=== PATIENT | male | born 1980 | race Caucasian/White ===

== ENCOUNTER 2018-01-24 12:17 | Inpatient (IN) | payer MEDICAID ==
[~2018-01-24] VITALS: Ht 170.2 cm; Wt 59.6 kg
[~2018-01-24 12:17] MED LIST: HIV MEDICATIONS PO; antihypertensive PO
[2018-01-24 13:08] LABS: GLUCOSE,POINT OF CARE 83 MG/DL (70-110)
[2018-01-24 13:34] LABS: BASOPHILS % (AUTO) 0.5 % (0.0-2.0); EOSINOPHILS % (AUTO) 2.3 % (1.0-6.0); HEMATOCRIT 36.4 % (41-53); LYMPHOCYTES # (AUTO) 0.9 K/uL (1.0-4.8); LYMPHOCYTES % (AUTO) 13.7 % (22.0-44.0); MEAN CORPUSCULAR HEMOGLOBIN 24.8 pg (26.0-34.0); MEAN CORPUSCULAR HGB CONC 33.1 G/dL (31.0-37.0); MEAN CORPUSCULAR VOLUME 75 fL (80-100); MONOCYTES # (AUTO) 0.6 K/uL (0.1-1.0); MONOCYTES % (AUTO) 8.1 % (2.0-9.0); NEUTROPHILS # (AUTO) 5.2 K/uL (1.8-7.7); NEUTROPHILS % (AUTO) 75.4 % (40.0-70.0); PLATELET COUNT (AUTO) 708 K/uL (150-450); RED BLOOD CELL COUNT(AUTO) 4.86 MIL/uL (4.50-5.90); RED CELL DISTRIBUTION WIDTH 19.3 % (11.5-14.5)
[2018-01-24 13:44] LABS: PROTHROMBIN TIME 10.1 SEC (9.4-11.6)
[2018-01-24 13:49] LABS: ANION GAP 9 mmol/L (8-16); CALCIUM, TOTAL 8.9 mg/dL (8.8-10.5); CARBON DIOXIDE 30 mmol/L (22-29); CHLORIDE 97 mmol/L (98-107); CREATININE 0.72 mg/dL (0.60-1.30); GLOMERULAR FILTR. RATE CALC > 60 mL/min (>60); GLUCOSE,RANDOM 82 mg/dL (70-110); POTASSIUM 3.3 mmol/L (3.5-5.1); SODIUM SERUM 136 mmol/L (136-145); UREA NITROGEN, BLOOD 7 mg/dL (7-18)
[2018-01-24 13:56] LABS: B-TYPE NATRIURETIC PEPTIDE 21 pg/mL (0-100)
[2018-01-24 13:57] LABS: LACTIC ACID 1.2 mmol/L (0.4-2.0)
[2018-01-24 14:14] LABS: ALANINE AMINOTRANSFERASE 25 U/L (12-78); ALBUMIN 3.4 g/dL (3.4-5.0); ALKALINE PHOSPHATASE 200 U/L (46-116); ASPARTATE AMINOTRANSFERASE 28 U/L (15-37); BILIRUBIN,TOTAL 0.2 mg/dL (0.1-1.0); CREATINE KINASE MB < 0.5 ng/mL (0-5); CREATINE KINASE, TOTAL 119 U/L (39-308); TOTAL PROTEIN, SERUM 8.7 g/dL (6.4-8.2)
[2018-01-24] MEDS ORDERED: POTASSIUM CHLORIDE 20 MEQ ER TABLET PO ONE (14:30)
[2018-01-24] MEDS ORDERED: 0.9% SODIUM CHLORIDE 10 ML SYRINGE IVP PRN (15:15)
[2018-01-24] MEDS ORDERED: ACETAMINOPHEN 325 MG TABLET PO PRN (15:15)
[2018-01-24] MEDS ORDERED: MAGNESIUM HYDROXIDE SUSPENSION 30 ML UDCUP PO PRN (16:00)
[2018-01-24] MEDS ORDERED: ONDANSETRON HCL 4 MG/2 ML VIAL IVP PRN (16:00)
[2018-01-24] MEDS ORDERED: CLOTRIMAZOLE 1% 15 GM CREAM TP ONE (16:00)
[2018-01-24] MEDS ORDERED: BISACODYL 10 MG RECTAL RECTAL SUPPOSITORY PR PRN (16:00)
[2018-01-24] MEDS: HEPARIN SODIUM,PORCINE 5,000 UNITS/ML VIAL SQ SCH ×2 (16:10→23:26)
[2018-01-24 16:58] LABS: APPEARANCE,URINE CLEAR (CLEAR); BILIRUBIN,URINE NEGATIVE (NEGATIVE); GLUCOSE, URINE (UA) NEGATIVE (NEGATIVE); KETONES,URINE NEGATIVE (NEGATIVE); LEUKOCYTE ESTERASE ,URINE NEGATIVE (NEGATIVE); NITRATE,URINE NEGATIVE (NEGATIVE); OCCULT BLOOD,URINE NEGATIVE (NEGATIVE); PROTEIN,URINE NEGATIVE (NEGATIVE); UROBILINOGEN,URINE 0.2 mg/dL (<=1.0)
[2018-01-24 17:03] VITALS: BP 134/80
[2018-01-24] MEDS ORDERED: AZIT600T5 PO (18:18)
[2018-01-24] MEDS ORDERED: ACYC200L PO (18:18)
[2018-01-24] MEDS ORDERED: DOLU50TA PO (18:18)
[2018-01-24] MEDS ORDERED: MIRT15TA PO (18:18)
[2018-01-24] MEDS ORDERED: DARU1TAB PO (18:18)
[2018-01-24] MEDS ORDERED: VALA100026 PO (18:18)
[2018-01-24] MEDS ORDERED: AMOX-429 PO (18:18)
[2018-01-24] MEDS ORDERED: EMTR1TAB13 PO (18:18)
[2018-01-24] MEDS ORDERED: D-ME118S13 PO (18:18)
[2018-01-24] MEDS ORDERED: DAPS100 PO (18:18)
[2018-01-24] MEDS ORDERED: FLUC200T PO (18:18)
[2018-01-24] MEDS ORDERED: VALA500T PO (18:18)
[2018-01-24] MEDS: MORPHINE SULFATE 4 MG/ML SYRINGE IVP PRN (18:37)
[2018-01-24 20:06] VITALS: BP 134/85
[2018-01-24] MEDS: DOCUSATE SODIUM 100 MG CAPSULE PO SCH (20:32)
[2018-01-24] MEDS: ACETAMINOPHEN 325 MG TABLET PO PRN (20:32)
[2018-01-24 23:50] VITALS: BP 122/84
[2018-01-25] MEDS: HYDROCODONE/ACETAMINOPHEN 5-325 MG TABLET PO PRN ×3 (02:35→21:46)
[2018-01-25] MEDS ORDERED: SULF1TAB3 PO (06:11)
[2018-01-25 06:50] LABS: BASOPHILS % (AUTO) 0.4 % (0.0-2.0); EOSINOPHILS % (AUTO) 1.9 % (1.0-6.0); HEMATOCRIT 31.1 % (41-53); HEMOGLOBIN 10.5 g/dL (13.5-17.5); LYMPHOCYTES # (AUTO) 0.9 K/uL (1.0-4.8); LYMPHOCYTES % (AUTO) 12.9 % (22.0-44.0); MEAN CORPUSCULAR HGB CONC 33.8 G/dL (31.0-37.0); MEAN CORPUSCULAR VOLUME 74 fL (80-100); MONOCYTES # (AUTO) 0.9 K/uL (0.1-1.0); NEUTROPHILS # (AUTO) 5.1 K/uL (1.8-7.7); NEUTROPHILS % (AUTO) 71.8 % (40.0-70.0); PLATELET COUNT (AUTO) 607 K/uL (150-450); RED CELL DISTRIBUTION WIDTH 18.4 % (11.5-14.5)
[2018-01-25 07:32] LABS: ALANINE AMINOTRANSFERASE 20 U/L (12-78); ALBUMIN 2.9 g/dL (3.4-5.0); ALKALINE PHOSPHATASE 171 U/L (46-116); ANION GAP 11 mmol/L (8-16); ASPARTATE AMINOTRANSFERASE 21 U/L (15-37); BILIRUBIN,TOTAL 0.2 mg/dL (0.1-1.0); CALCIUM, TOTAL 8.5 mg/dL (8.8-10.5); CARBON DIOXIDE 26 mmol/L (22-29); CHLORIDE 100 mmol/L (98-107); CREATININE 0.57 mg/dL (0.60-1.30); GLOMERULAR FILTR. RATE CALC > 60 mL/min (>60); GLUCOSE,RANDOM 82 mg/dL (70-110); POTASSIUM 3.6 mmol/L (3.5-5.1); SODIUM SERUM 137 mmol/L (136-145); TOTAL PROTEIN, SERUM 7.4 g/dL (6.4-8.2); UREA NITROGEN, BLOOD 10 mg/dL (7-18)
[2018-01-25 08:05] VITALS: BP 116/69
[2018-01-25] MEDS: PANTOPRAZOLE SODIUM 40 MG DR TABLET PO SCH (09:07)
[2018-01-25] MEDS: DOCUSATE SODIUM 100 MG CAPSULE PO SCH ×2 (09:07→20:06)
[2018-01-25] MEDS: HEPARIN SODIUM,PORCINE 5,000 UNITS/ML VIAL SQ SCH ×3 (09:07→23:27)
[2018-01-25] MEDS ORDERED: DOLUTEGRAVIR SODIUM 50 MG TABLET PO ONE (11:45)
[2018-01-25] MEDS ORDERED: FLUCONAZOLE 200 MG TABLET PO ONE (11:45)
[2018-01-25] MEDS ORDERED: SULFAMETHOX/TRIMETH DS 800-160 MG/TABLET PO ONE (11:45)
[2018-01-25 12:02] VITALS: BP 116/67
[2018-01-25] MEDS: MORPHINE SULFATE 4 MG/ML SYRINGE IVP PRN ×2 (12:07→19:41)
[2018-01-25] MEDS: ACETAMINOPHEN 325 MG TABLET PO PRN (14:09)
[2018-01-25] MEDS: ACYCLOVIR 200 MG/5 ML SUSPENSION ORAL.SYG PO SCH ×2 (14:09→23:26)
[2018-01-25] MEDS: ValACYclovir HCL 500 MG TABLET PO SCH ×2 (16:00→17:43)
[2018-01-25 20:06] VITALS: BP 161/92
[2018-01-25] MEDS: ZOLPIDEM TARTRATE 5 MG TABLET PO PRN (21:46)
[2018-01-25] MEDS: DOXYCYCLINE HYCLATE 100 MG CAPSULE PO SCH (23:27)
[2018-01-25] MEDS: CefTRIAXone SODIUM 1 GM in DEXTROSE 5%-WATER 10 ML IV SCH (23:29)
[2018-01-26] MEDS: MORPHINE SULFATE 4 MG/ML SYRINGE IVP PRN ×4 (01:43→19:16)
[2018-01-26 05:15] VITALS: BP 120/79
[2018-01-26] MEDS: ACETAMINOPHEN 325 MG TABLET PO PRN (05:20)
[2018-01-26] MEDS: FLUCONAZOLE 200 MG TABLET PO SCH (08:01)
[2018-01-26] MEDS: ACYCLOVIR 200 MG/5 ML SUSPENSION ORAL.SYG PO SCH ×3 (08:01→23:20)
[2018-01-26] MEDS: SULFAMETHOX/TRIMETH DS 800-160 MG/TABLET PO SCH (08:01)
[2018-01-26] MEDS: DOLUTEGRAVIR SODIUM 50 MG TABLET PO SCH (08:01)
[2018-01-26] MEDS: HEPARIN SODIUM,PORCINE 5,000 UNITS/ML VIAL SQ SCH ×3 (08:01→23:20)
[2018-01-26] MEDS: DOXYCYCLINE HYCLATE 100 MG CAPSULE PO SCH ×2 (08:01→20:29)
[2018-01-26] MEDS: DOCUSATE SODIUM 100 MG CAPSULE PO SCH ×2 (08:02→20:29)
[2018-01-26] MEDS: PANTOPRAZOLE SODIUM 40 MG DR TABLET PO SCH (08:02)
[2018-01-26 08:10] VITALS: BP 114/71
[2018-01-26 16:20] VITALS: BP 123/73
[2018-01-26 23:00] VITALS: BP 126/83
[2018-01-26] MEDS: CefTRIAXone SODIUM 1 GM in DEXTROSE 5%-WATER 10 ML IV SCH (23:20)
[2018-01-27] MEDS: MORPHINE SULFATE 4 MG/ML SYRINGE IVP PRN ×4 (00:03→22:00)
[2018-01-27 08:03] VITALS: BP 132/75
[2018-01-27] MEDS: HEPARIN SODIUM,PORCINE 5,000 UNITS/ML VIAL SQ SCH ×2 (09:16→17:23)
[2018-01-27] MEDS: DOXYCYCLINE HYCLATE 100 MG CAPSULE PO SCH ×2 (09:16→21:00)
[2018-01-27] MEDS: SULFAMETHOX/TRIMETH DS 800-160 MG/TABLET PO SCH (09:16)
[2018-01-27] MEDS: DOCUSATE SODIUM 100 MG CAPSULE PO SCH ×2 (09:16→21:00)
[2018-01-27] MEDS: DOLUTEGRAVIR SODIUM 50 MG TABLET PO SCH (09:16)
[2018-01-27] MEDS: PANTOPRAZOLE SODIUM 40 MG DR TABLET PO SCH (09:16)
[2018-01-27] MEDS: FLUCONAZOLE 200 MG TABLET PO SCH (09:16)
[2018-01-27] MEDS: ACYCLOVIR 200 MG/5 ML SUSPENSION ORAL.SYG PO SCH ×2 (09:17→17:23)
[2018-01-27] MEDS: HYDROCODONE/ACETAMINOPHEN 5-325 MG TABLET PO PRN (09:25)
[2018-01-27 15:41] VITALS: BP 129/71
[2018-01-27] MEDS: CefTRIAXone SODIUM 1 GM in DEXTROSE 5%-WATER 10 ML IV SCH (21:01)
[2018-01-28] MEDS: ACYCLOVIR 200 MG/5 ML SUSPENSION ORAL.SYG PO SCH ×3 (00:06→16:00)
[2018-01-28] MEDS: ZOLPIDEM TARTRATE 5 MG TABLET PO PRN (00:07)
[2018-01-28] MEDS: HEPARIN SODIUM,PORCINE 5,000 UNITS/ML VIAL SQ SCH ×3 (00:07→16:00)
[2018-01-28 00:13] VITALS: BP 122/76
[2018-01-28 06:29] VITALS: BP 117/73
[2018-01-28 09:27] LABS: ORGANISM ID Not indicated.; S PNEUMO SOURCE Urine; STREP PNEUMONIAE AG URINE Negative (Negative); STREP.PNEUMO BODY FLUID CULT. Not Indicated
[2018-01-28] MEDS: SULFAMETHOX/TRIMETH DS 800-160 MG/TABLET PO SCH (09:34)
[2018-01-28] MEDS: DOLUTEGRAVIR SODIUM 50 MG TABLET PO SCH (09:35)
[2018-01-28] MEDS: PANTOPRAZOLE SODIUM 40 MG DR TABLET PO SCH (09:35)
[2018-01-28] MEDS: DOCUSATE SODIUM 100 MG CAPSULE PO SCH (09:35)
[2018-01-28] MEDS: FLUCONAZOLE 200 MG TABLET PO SCH (09:35)
[2018-01-28] MEDS: DOXYCYCLINE HYCLATE 100 MG CAPSULE PO SCH (09:35)
[2018-01-28 11:15] VITALS: BP 115/73
[2018-01-28 15:10] VITALS: BP 128/75
[2018-02-01] MEDS ORDERED: AZITHROMYCIN 600 MG TABLET PO SCH (09:00)
== END 2018-01-28 16:10 | disposition left against medical advice (07) | DRG 892 ==
LOC: EMS 12:18 → 6N 15:49
PROVIDERS: ADMIT Internal Medicine; ATTEND Internal Medicine
DX: B20 Human immunodeficiency virus [HIV] disease (principal); A15.9 Respiratory tuberculosis unspecified; K92.0 Hematemesis; J18.9 Pneumonia, unspecified organism; I10 Essential (primary) hypertension; D64.9 Anemia, unspecified; E87.6 Hypokalemia; R09.02 Hypoxemia; R63.4 Abnormal weight loss; R19.7 Diarrhea, unspecified; Z53.21 Procedure and treatment not carried out due to patient leaving prior to being seen by health care provider; Z91.19 Patient's noncompliance with other medical treatment and regimen; Z86.11 Personal history of tuberculosis; Z68.20 Body mass index [BMI] 20.0-20.9, adult
CPT/HCPCS: 71250; 83605; 84145; 86361; 86403; 86406; 86480; 86738; 87015; 87040; 87070; 87205; 87449; 87899; 88108; 88312; 93005; 99285; J0696; J1644; J2270; J7060

== ENCOUNTER 2018-06-25 19:11 | Inpatient (IN) | payer MEDICAID ==
[~2018-06-25] VITALS: Ht 170.2 cm; Wt 57.3 kg
[~2018-06-25 19:11] MED LIST changes: +ACYC200L PO; +AMOX-429 PO; +AZIT600T5 PO; +D-ME118S13 PO; +DAPS100 PO; +DARU1TAB PO; +DOLU50TA PO; +EMTR1TAB13 PO; +FLUC200T PO; +MIRT15TA PO; +SULF1TAB3 PO; +VALA100026 PO; +VALA500T PO
[2018-06-25] MEDS ORDERED: 0.9% SODIUM CHLORIDE 10 ML SYRINGE IVP PRN (19:45)
[2018-06-25] MEDS ORDERED: ACYC200C PO (19:48)
[2018-06-25 20:25] LABS: HEMATOCRIT 33.1 % (41-53); HEMOGLOBIN 10.9 g/dL (13.5-17.5); MEAN CORPUSCULAR HEMOGLOBIN 24.3 pg (26.0-34.0); MEAN CORPUSCULAR VOLUME 74 fL (80-100); PLATELET COUNT (AUTO) 706 K/uL (150-450); RED CELL DISTRIBUTION WIDTH 17.9 % (11.5-14.5)
[2018-06-25 20:34] LABS: PROTHROMBIN TIME 10.5 SEC (9.4-11.6)
[2018-06-25 20:41] LABS: ALANINE AMINOTRANSFERASE 21 U/L (12-78); ALBUMIN 2.7 g/dL (3.4-5.0); ALKALINE PHOSPHATASE 168 U/L (46-116); ANION GAP 10 mmol/L (8-16); ASPARTATE AMINOTRANSFERASE 20 U/L (15-37); BILIRUBIN,TOTAL 0.3 mg/dL (0.1-1.0); CALCIUM, TOTAL 8.7 mg/dL (8.8-10.5); CARBON DIOXIDE 28 mmol/L (22-29); CHLORIDE 99 mmol/L (98-107); CREATINE KINASE, TOTAL ONLY 37 U/L (39-308); CREATININE 0.65 mg/dL (0.60-1.30); GLOMERULAR FILTR. RATE CALC > 60 mL/min (>60); GLUCOSE,RANDOM 107 mg/dL (70-110); SODIUM SERUM 137 mmol/L (136-145); TOTAL PROTEIN, SERUM 7.6 g/dL (6.4-8.2); UREA NITROGEN, BLOOD 10 mg/dL (7-18)
[2018-06-25] MEDS ORDERED: ACETAMINOPHEN 325 MG TABLET PO PRN (20:45)
[2018-06-25] MEDS ORDERED: MAGNESIUM HYDROXIDE SUSPENSION 30 ML UDCUP PO PRN (20:45)
[2018-06-25] MEDS ORDERED: ALBUTEROL SULFATE 2.5 MG/0.5 ML NEB SOLUTION NEB PRN (20:45)
[2018-06-25] MEDS ORDERED: LEVOFLOXACIN 500 MG/D5% WATER 100 ML IV ONE (20:45)
[2018-06-25 20:47] LABS: BAND NEUTROPHILS % (MANUAL) 23 % (0-5); EOSINOPHILS % (MANUAL) 1 % (1-6); LYMPHOCYTES % (MANUAL) 13 % (22-44); METAMYELOCYTES % 1 % (0-0); MONOCYTES % (MANUAL) 11 % (2-9); SEGMENTED NEUTROPHILS % 51 % (40-70)
[2018-06-25 20:48] LABS: PLATELET MORPHOLOGY COMMENT LARGE PLTS PRESENT
[2018-06-25 20:51] LABS: B-TYPE NATRIURETIC PEPTIDE 23 pg/mL (0-100)
[2018-06-25 21:00] LABS: LACTIC ACID 1.3 mmol/L (0.4-2.0)
[2018-06-25] MEDS ORDERED: POTASSIUM CHL 10 MEQ/WATER 50 ML IV PRN (21:00)
[2018-06-25] MEDS: DOCUSATE SODIUM 100 MG CAPSULE PO SCH (21:00)
[2018-06-25] MEDS ORDERED: SODIUM CHLORIDE 0.9% 1,000 ML IV ONE (21:00)
[2018-06-25] MEDS ORDERED: POTASSIUM CHLORIDE 20 MEQ ER TABLET PO PRN (21:00)
[2018-06-25] MEDS ORDERED: POTASSIUM CHLORIDE 20 MEQ ER TABLET PO ONE (21:30)
[2018-06-25] MEDS ORDERED: NYSTATIN 500,000 UNITS/5 ML SUSPENSION UDCUP PO ONE (21:45)
[2018-06-25] MEDS: OxyCODONE HCL/ACETAMINOPHEN 5-325 MG TABLET PO PRN (22:35)
[2018-06-25] MEDS ORDERED: IOVERSOL 350 MG/ML 100 ML VIAL ONE (22:37)
[2018-06-25] MEDS ORDERED: SODIUM CHLORIDE 0.9% 100 ML ONE (22:37)
[2018-06-25] MEDS: PROMETH/PHENYLEPHRINE/CODEINE 5 ML ORAL.SYG PO PRN (22:44)
[2018-06-25] MEDS ORDERED: LORazepam 2 MG/ML VIAL IVP ONE (23:00)
[2018-06-26 00:31] VITALS: BP 119/60
[2018-06-26 04:30] VITALS: BP 122/62
[2018-06-26] MEDS: PROMETH/PHENYLEPHRINE/CODEINE 5 ML ORAL.SYG PO PRN (04:54)
[2018-06-26] MEDS: OxyCODONE HCL/ACETAMINOPHEN 5-325 MG TABLET PO PRN (06:11)
[2018-06-26 07:34] VITALS: BP 127/75
[2018-06-26] MEDS: PANTOPRAZOLE SODIUM 40 MG DR TABLET PO SCH (08:28)
[2018-06-26] MEDS: DOCUSATE SODIUM 100 MG CAPSULE PO SCH ×2 (08:28→21:00)
[2018-06-26] MEDS ORDERED: [UNRECOGNIZED DRUG - OTHER] PO SCH (09:45)
[2018-06-26] MEDS: PROMETHAZINE HCL/D-METHORPHAN HB 5 ML ORAL.SYG PO PRN ×2 (10:39→18:09)
[2018-06-26] MEDS: AMOX TR/POT CLAV 875 MG/125 MG TABLET PO SCH ×2 (10:51→21:00)
[2018-06-26] MEDS: SULFAMETHOX/TRIMETH DS 800-160 MG/TABLET PO SCH (10:51)
[2018-06-26 11:24] VITALS: BP 112/71
[2018-06-26] MEDS ORDERED: SODIUM CHLORIDE 3% 15 ML NEB SOLUTION NEB ONE (11:53)
[2018-06-26] MEDS: MORPHINE SULFATE 2 MG/ML SYRINGE IVP PRN ×2 (13:41→18:10)
[2018-06-26] MEDS: ACYCLOVIR 200 MG CAPSULE PO SCH (16:00)
[2018-06-26] MEDS: ACETAMINOPHEN 650 MG/20.3 ML SOLUTION UDCUP PO PRN (19:12)
[2018-06-26 19:27] VITALS: BP 118/74
[2018-06-26] MEDS: MIRTAZAPINE 15 MG TABLET PO SCH ×2 (21:00→22:41)
[2018-06-26] MEDS ORDERED: SODIUM CHLORIDE 0.9% 250 ML IV ONE (21:43)
[2018-06-26 23:27] VITALS: BP 121/68
[2018-06-27] MEDS: PROMETHAZINE HCL/D-METHORPHAN HB 5 ML ORAL.SYG PO PRN ×2 (04:10→17:47)
[2018-06-27] MEDS: MORPHINE SULFATE 2 MG/ML SYRINGE IVP PRN ×2 (04:11→17:17)
[2018-06-27 04:17] VITALS: BP 126/88
[2018-06-27] MEDS ORDERED: ACETAMINOPHEN 650 MG/ISO-OSM 65 ML IV PRN (05:00)
[2018-06-27] MEDS: ACYCLOVIR 200 MG CAPSULE PO SCH ×4 (08:00→23:51)
[2018-06-27 08:05] VITALS: BP 142/78
[2018-06-27 08:06] LABS: APPEARANCE,URINE CLEAR (CLEAR); BILIRUBIN,URINE NEGATIVE (NEGATIVE); GLUCOSE, URINE (UA) NEGATIVE (NEGATIVE); KETONES,URINE NEGATIVE (NEGATIVE); LEUKOCYTE ESTERASE ,URINE NEGATIVE (NEGATIVE); NITRATE,URINE NEGATIVE (NEGATIVE); OCCULT BLOOD,URINE NEGATIVE (NEGATIVE); PH,URINE 7.5 (5.0-8.0); PROTEIN,URINE NEGATIVE (NEGATIVE)
[2018-06-27] MEDS: DAPSONE 100 MG TABLET PO SCH (09:00)
[2018-06-27] MEDS ORDERED: EMTRICITABINE PO SCH (09:00)
[2018-06-27] MEDS: PANTOPRAZOLE SODIUM 40 MG DR TABLET PO SCH (09:00)
[2018-06-27] MEDS: AMOX TR/POT CLAV 875 MG/125 MG TABLET PO SCH ×2 (09:00→21:00)
[2018-06-27] MEDS: DOCUSATE SODIUM 100 MG CAPSULE PO SCH ×2 (09:00→21:00)
[2018-06-27] MEDS ORDERED: TENOFOV ALAFENAM PO SCH (09:00)
[2018-06-27] MEDS ORDERED: PREZCOBIX PO SCH (09:00)
[2018-06-27] MEDS: SULFAMETHOX/TRIMETH DS 800-160 MG/TABLET PO SCH (09:00)
[2018-06-27 12:08] VITALS: BP 119/82
[2018-06-27] MEDS: ACETAMINOPHEN 650 MG/20.3 ML SOLUTION UDCUP PO PRN (17:47)
[2018-06-27 17:49] VITALS: BP 133/84
[2018-06-27] MEDS: LORazepam 2 MG/ML VIAL IVP PRN (18:48)
[2018-06-27 19:35] VITALS: BP 134/85
[2018-06-27] MEDS: MIRTAZAPINE 15 MG TABLET PO SCH (21:00)
[2018-06-28] MEDS: MORPHINE SULFATE 2 MG/ML SYRINGE IVP PRN ×4 (01:41→21:50)
[2018-06-28 01:45] VITALS: BP 136/86
[2018-06-28] MEDS: PROMETHAZINE HCL/D-METHORPHAN HB 5 ML ORAL.SYG PO PRN ×3 (03:20→22:55)
[2018-06-28] MEDS: LORazepam 2 MG/ML VIAL IVP PRN (03:21)
[2018-06-28] MEDS ORDERED: SODIUM CHLORIDE 3% 15 ML NEB SOLUTION NEB ONE (05:29)
[2018-06-28] MEDS: ACYCLOVIR 200 MG CAPSULE PO SCH ×4 (08:00→23:14)
[2018-06-28 08:06] VITALS: BP 136/102
[2018-06-28] MEDS ORDERED: FLUCONAZOLE 200 MG TABLET PO SCH (09:00)
[2018-06-28] MEDS ORDERED: AZITHROMYCIN 600 MG TABLET PO SCH (09:00)
[2018-06-28] MEDS: PANTOPRAZOLE SODIUM 40 MG DR TABLET PO SCH (11:32)
[2018-06-28] MEDS: DOCUSATE SODIUM 100 MG CAPSULE PO SCH ×2 (11:32→21:00)
[2018-06-28] MEDS: SULFAMETHOX/TRIMETH DS 800-160 MG/TABLET PO SCH (11:32)
[2018-06-28] MEDS: AMOX TR/POT CLAV 875 MG/125 MG TABLET PO SCH ×2 (11:32→12:54)
[2018-06-28] MEDS: DAPSONE 100 MG TABLET PO SCH (11:35)
[2018-06-28 15:24] VITALS: BP 132/99
[2018-06-28 19:56] VITALS: BP 127/87
[2018-06-28] MEDS: MIRTAZAPINE 15 MG TABLET PO SCH (21:00)
[2018-06-29 05:27] VITALS: BP 135/88
[2018-06-29] MEDS: MORPHINE SULFATE 2 MG/ML SYRINGE IVP PRN (06:29)
[2018-06-29] MEDS: ACYCLOVIR 200 MG CAPSULE PO SCH (08:00)
[2018-06-29] MEDS: SULFAMETHOX/TRIMETH DS 800-160 MG/TABLET PO SCH (09:00)
[2018-06-29] MEDS: DOCUSATE SODIUM 100 MG CAPSULE PO SCH (09:00)
[2018-06-29] MEDS: AMOX TR/POT CLAV 875 MG/125 MG TABLET PO SCH (09:00)
[2018-06-29] MEDS ORDERED: DOLUTEGRAVIR SODIUM 50 MG TABLET PO SCH (09:00)
[2018-06-29] MEDS: DAPSONE 100 MG TABLET PO SCH (09:00)
[2018-06-29] MEDS: PANTOPRAZOLE SODIUM 40 MG DR TABLET PO SCH (09:00)
[2018-07-03] MEDS ORDERED: [UNRECOGNIZED DRUG - OTHER] PO SCH (09:00)
== END 2018-06-29 10:50 | disposition left against medical advice (07) | DRG 894 ==
LOC: EMS 19:12 → 5N 23:04
PROVIDERS: ADMIT Internal Medicine; ATTEND Internal Medicine
DX: R04.2 Hemoptysis (principal); B20 Human immunodeficiency virus [HIV] disease; R64 Cachexia; E43 Unspecified severe protein-calorie malnutrition; B37.0 Candidal stomatitis; R13.10 Dysphagia, unspecified; I10 Essential (primary) hypertension; Z86.11 Personal history of tuberculosis; Z91.19 Patient's noncompliance with other medical treatment and regimen; Z79.2 Long term (current) use of antibiotics; Z79.899 Other long term (current) drug therapy; Z68.1 Body mass index [BMI] 19.9 or less, adult
CPT/HCPCS: 71260; 83605; 84132; 86361; 87015; 87040; 87206; 93005; 96365; 96375; 99285; J0131; J1956; J2060; J2270; J2370; J7030; J7050

== ENCOUNTER 2020-04-28 18:41 | Emergency (ER) | payer MEDICAID ==
[~2020-04-28] VITALS: Ht 170.2 cm; Wt 68.2 kg
[~2020-04-28 18:41] MED LIST changes: +ACYC200C PO; -ACYC200L PO; -D-ME118S13 PO; +PROM118S5 PO; -VALA500T PO
[2020-04-28] MEDS ORDERED: SULF1TAB42 PO (19:44)
[2020-04-28] MEDS ORDERED: FLUC200T PO (19:46)
[2020-04-28 20:00] VITALS: BP 153/82
[2020-04-28] MEDS: ACETAMINOPHEN 500 MG TABLET PO ONE ×2 (20:01→20:26)
[2020-04-28] MEDS: SODIUM CHLORIDE 0.9% 1,000 ML IV ONE ×2 (20:02→20:25)
== END 2020-04-28 20:12 | disposition left against medical advice (07) ==
LOC: EMS 18:41 → EDUNIT# 18:41 → EMS 20:12
DX: R06.02 Shortness of breath (principal); R50.9 Fever, unspecified; R51 Headache; M79.10 Myalgia, unspecified site; I10 Essential (primary) hypertension
CPT/HCPCS: 71045; 99283; J7030

== ENCOUNTER 2020-06-02 13:09 | Emergency (ER) | payer MEDICAID ==
[~2020-06-02] VITALS: Ht 175.3 cm; Wt 68.2 kg
[~2020-06-02 13:09] MED LIST changes: -ACYC200C PO; -AMOX-429 PO; -HIV MEDICATIONS PO; -SULF1TAB3 PO; +SULF1TAB42 PO; -VALA100026 PO; -antihypertensive PO
[2020-06-02 13:14] VITALS: BP 142/90
[2020-06-02] MEDS ORDERED: DARU600T PO (13:19)
[2020-06-02] MEDS ORDERED: EMTR1TAB15 PO (13:19)
== END 2020-06-02 16:20 | disposition left against medical advice (07) ==
LOC: EMS 13:14
DX: R52 Pain, unspecified (principal); Z53.21 Procedure and treatment not carried out due to patient leaving prior to being seen by health care provider

== ENCOUNTER 2022-05-11 00:41 | Emergency (ER) | payer MEDICAID ==
[~2022-05-11] VITALS: Ht 175.3 cm; Wt 68.0 kg
[~2022-05-11 00:41] MED LIST changes: -AZIT600T5 PO; -DAPS100 PO; -DARU1TAB PO; +DARU600T PO; +EMTR1TAB15 PO; -FLUC200T PO; -MIRT15TA PO; -PROM118S5 PO; -SULF1TAB42 PO
[2022-05-11 01:20] LABS: COVID AG,FIA SOURCE NASAL SWAB
[2022-05-11] MEDS ORDERED: SODIUM CHLORIDE 0.9% 1,000 ML IV ONE (02:15)
[2022-05-11 02:20] LABS: HEMATOCRIT 28.2 % (41-53); HEMOGLOBIN 9.5 g/dL (13.5-17.5); MEAN CORPUSCULAR HEMOGLOBIN 25.6 pg (26.0-34.0); MEAN CORPUSCULAR HGB CONC 33.7 G/dL (31.0-37.0); MEAN CORPUSCULAR VOLUME 76 fL (80-100); PLATELET COUNT (AUTO) 200 K/uL (150-450); RED BLOOD CELL COUNT(AUTO) 3.72 MIL/uL (4.50-5.90); RED CELL DISTRIBUTION WIDTH 15.9 % (11.5-14.5)
[2022-05-11 02:29] LABS: CALCIUM, TOTAL 8.2 mg/dL (8.8-10.5); CREATININE 1.52 mg/dL (0.60-1.30); POTASSIUM 3.3 mmol/L (3.5-5.1)
[2022-05-11 02:35] LABS: ALBUMIN 3.7 g/dL (3.4-5.0); BILIRUBIN,TOTAL 0.4 mg/dL (0.1-1.0); TOTAL PROTEIN, SERUM 7.9 g/dL (6.4-8.2)
[2022-05-11 02:43] LABS: BAND NEUTROPHILS % (MANUAL) 4 % (0-5); LYMPHOCYTES % (MANUAL) 11 % (22-44); METAMYELOCYTES % 2 % (0-0); MONOCYTES % (MANUAL) 11 % (2-9); SEGMENTED NEUTROPHILS % 72 % (40-70)
[2022-05-11 03:11] LABS: INFLUENZA TYPE A NEGATIVE FOR TYPE A (NEGATIVE); INFLUENZA TYPE B NEGATIVE FOR TYPE B (NEGATIVE)
[2022-05-11] MEDS ORDERED: AZIT250T9 PO (07:27)
[2022-05-11] MEDS ORDERED: POTASSIUM CHLORIDE 20 MEQ ER TABLET PO ONE (07:30)
[2022-05-11 08:03] VITALS: BP 128/78
== END 2022-05-11 08:25 | disposition home or self-care (01) ==
LOC: EMS 00:42
DX: B34.9 Viral infection, unspecified (principal); E86.0 Dehydration; I10 Essential (primary) hypertension; Z79.899 Other long term (current) drug therapy; Z20.822 Contact with and (suspected) exposure to COVID-19
CPT/HCPCS: 99285; 96360; 71046; 87426; 80053; 85025; 87804; 36415; 74019; J7030

== ENCOUNTER 2022-06-09 15:49 | Emergency (ER) | payer MEDICAID ==
[~2022-06-09] VITALS: Ht 175.3 cm; Wt 77.3 kg
[2022-06-09] MEDS ORDERED: ACETAMINOPHEN 1000 MG/ISO-OSM 100 ML IV ONE (16:00)
[2022-06-09] MEDS ORDERED: SODIUM CHLORIDE 0.9% 1,000 ML IV ONE ×3 (16:00→17:30)
[2022-06-09] MEDS ORDERED: ONDANSETRON HCL 4 MG/2 ML VIAL IVP ONE (16:00)
[2022-06-09 16:33] LABS: COVID AG,FIA SOURCE NASOPHARYNGEAL
[2022-06-09 16:44] LABS: ALANINE AMINOTRANSFERASE 22 U/L (12-78); ALBUMIN 2.6 g/dL (3.4-5.0); ALKALINE PHOSPHATASE 100 U/L (46-116); ANION GAP 7 mmol/L (8-16); ASPARTATE AMINOTRANSFERASE 22 U/L (15-37); BILIRUBIN,TOTAL 0.4 mg/dL (0.1-1.0); CALCIUM, TOTAL 7.7 mg/dL (8.8-10.5); CARBON DIOXIDE 22 mmol/L (22-29); CHLORIDE 105 mmol/L (98-107); CREATINE KINASE, TOTAL ONLY 55 U/L (39-308); CREATININE 0.91 mg/dL (0.60-1.30); GLUCOSE,RANDOM 109 mg/dL (70-110); SODIUM SERUM 134 mmol/L (136-145); TOTAL PROTEIN, SERUM 6.3 g/dL (6.4-8.2); UREA NITROGEN, BLOOD 16 mg/dL (7-18)
[2022-06-09 16:45] LABS: BASOPHILS % (AUTO) 0.2 % (0.0-2.0); EOSINOPHILS % (AUTO) 0 % (1.0-6.0); HEMOGLOBIN 8.1 g/dL (13.5-17.5); LACTIC ACID 1.5 mmol/L (0.4-2.0); LYMPHOCYTES # (AUTO) 0.6 K/uL (1.0-4.8); LYMPHOCYTES % (AUTO) 9.4 % (22.0-44.0); MEAN CORPUSCULAR HEMOGLOBIN 25.8 pg (26.0-34.0); MEAN CORPUSCULAR HGB CONC 32.6 G/dL (31.0-37.0); MEAN CORPUSCULAR VOLUME 79 fL (80-100); MONOCYTES # (AUTO) 1.4 K/uL (0.1-1.0); MONOCYTES % (AUTO) 23.9 % (2.0-9.0); NEUTROPHILS % (AUTO) 66.5 % (40.0-70.0); PLATELET COUNT (AUTO) 228 K/uL (150-450); RED BLOOD CELL COUNT(AUTO) 3.15 MIL/uL (4.50-5.90); RED CELL DISTRIBUTION WIDTH 19.4 % (11.5-14.5)
[2022-06-09 16:47] LABS: GLOMERULAR FILTR. RATE CALC > 60 mL/min (>60)
[2022-06-09 16:48] LABS: POTASSIUM 2.9 mmol/L (3.5-5.1)
[2022-06-09] MEDS ORDERED: POTASSIUM CHLORIDE 20 MEQ ER TABLET PO ONE (17:00)
[2022-06-09] MEDS ORDERED: IBUPROFEN 600 MG TABLET PO ONE (17:00)
[2022-06-09] MEDS ORDERED: IOHEXOL 300 MG/ML 100 ML VIAL ONE (18:06)
[2022-06-09] MEDS ORDERED: SODIUM CHLORIDE 0.9% 100 ML ONE (18:06)
[2022-06-09 18:38] LABS: APPEARANCE,URINE CLEAR (CLEAR); BILIRUBIN,URINE NEGATIVE (NEGATIVE); GLUCOSE, URINE (UA) NEGATIVE (NEGATIVE); KETONES,URINE NEGATIVE (NEGATIVE); LEUKOCYTE ESTERASE ,URINE NEGATIVE (NEGATIVE); NITRATE,URINE NEGATIVE (NEGATIVE); OCCULT BLOOD,URINE NEGATIVE (NEGATIVE); PH,URINE 6.5 (5.0-8.0); PROTEIN,URINE 30-70 mg/dL (NEGATIVE); SPECIFIC GRAVITIY, URINE 1.017 (1.003-1.030); UROBILINOGEN,URINE <=1.0 mg/dL (<=1.0)
[2022-06-09] MEDS ORDERED: MORPHINE SULFATE 2 MG/ML SYRINGE IVP ONE (19:45)
[2022-06-09] MEDS ORDERED: LEVO-72 PO (20:25)
[2022-06-09] MEDS ORDERED: IBUP-2070 PO (20:25)
[2022-06-09] MEDS ORDERED: PHEN-674 PO (20:25)
[2022-06-09 21:03] VITALS: BP 111/68
== END 2022-06-09 21:11 | disposition home or self-care (01) ==
LOC: EMS 15:51
DX: N41.0 Acute prostatitis (principal); Z20.822 Contact with and (suspected) exposure to COVID-19; B96.89 Other specified bacterial agents as the cause of diseases classified elsewhere; D64.9 Anemia, unspecified; E87.6 Hypokalemia; I10 Essential (primary) hypertension; R10.9 Unspecified abdominal pain; Z87.440 Personal history of urinary (tract) infections
CPT/HCPCS: 99285; 74176; 96374; 96361; 71045; 96375; 87426; 80053; 81003; 82550; 83605; 84484; 85025; 87040; 36415; 76870; 93005; J2270; J2405; J7030; J7050; Q9967; J0131

== ENCOUNTER 2022-10-29 23:20 | Emergency (ER) | payer MEDICAID ==
[~2022-10-29] VITALS: Ht 175.3 cm; Wt 63.6 kg
[~2022-10-29 23:20] MED LIST changes: -EMTR1TAB15 PO
[2022-10-30] MEDS ORDERED: SODIUM CHLORIDE 0.9% 1,000 ML IV ONE (01:00)
[2022-10-30 01:26] LABS: EOSINOPHILS % (AUTO) 2.2 % (1.0-6.0); HEMATOCRIT 26.7 % (41-53); HEMOGLOBIN 8.7 g/dL (13.5-17.5); LYMPHOCYTES # (AUTO) 0.6 K/uL (1.0-4.8); LYMPHOCYTES % (AUTO) 14.1 % (22.0-44.0); MEAN CORPUSCULAR HEMOGLOBIN 26.8 pg (26.0-34.0); MEAN CORPUSCULAR HGB CONC 32.8 G/dL (31.0-37.0); MEAN CORPUSCULAR VOLUME 82 fL (80-100); MONOCYTES # (AUTO) 1.3 K/uL (0.1-1.0); MONOCYTES % (AUTO) 31.7 % (2.0-9.0); NEUTROPHILS # (AUTO) 2.1 K/uL (1.8-7.7); PLATELET COUNT (AUTO) 556 K/uL (150-450); RED BLOOD CELL COUNT(AUTO) 3.26 MIL/uL (4.50-5.90); RED CELL DISTRIBUTION WIDTH 27.9 % (11.5-14.5)
[2022-10-30 01:41] LABS: PROTHROMBIN TIME 10.5 SEC (9.4-11.6)
[2022-10-30 01:46] LABS: COVID AG,FIA SOURCE NASAL SWAB
[2022-10-30 01:48] LABS: ANION GAP 10 mmol/L (8-16); CALCIUM, TOTAL 7.6 mg/dL (8.8-10.5); CARBON DIOXIDE 18 mmol/L (22-29); CHLORIDE 114 mmol/L (98-107); CREATININE 0.76 mg/dL (0.60-1.30); GLUCOSE,RANDOM 94 mg/dL (70-110); POTASSIUM 3.3 mmol/L (3.5-5.1); SODIUM SERUM 142 mmol/L (136-145); UREA NITROGEN, BLOOD 15 mg/dL (7-18)
[2022-10-30 01:54] LABS: ALANINE AMINOTRANSFERASE 33 U/L (12-78); ALBUMIN 2.6 g/dL (3.4-5.0); ALKALINE PHOSPHATASE 230 U/L (46-116); ASPARTATE AMINOTRANSFERASE 28 U/L (15-37); BILIRUBIN,TOTAL 0.1 mg/dL (0.1-1.0); TOTAL PROTEIN, SERUM 7.2 g/dL (6.4-8.2)
[2022-10-30 01:59] LABS: GLOMERULAR FILTR. RATE CALC > 60 mL/min (>60)
[2022-10-30 02:08] LABS: APPEARANCE,URINE CLEAR (CLEAR); BILIRUBIN,URINE NEGATIVE (NEGATIVE); GLUCOSE, URINE (UA) NEGATIVE (NEGATIVE); KETONES,URINE NEGATIVE (NEGATIVE); LEUKOCYTE ESTERASE ,URINE NEGATIVE (NEGATIVE); NITRATE,URINE NEGATIVE (NEGATIVE); OCCULT BLOOD,URINE NEGATIVE (NEGATIVE); PROTEIN,URINE 30-70 mg/dL (NEGATIVE); SPECIFIC GRAVITIY, URINE 1.022 (1.003-1.030); UROBILINOGEN,URINE <=1.0 mg/dL (<=1.0)
[2022-10-30 02:13] LABS: AMPHET/METH SCREEN,URINE NEGATIVE (NEGATIVE); BARBITURATE SCREEN, URINE NEGATIVE (NEGATIVE); BENZODIAZEPINES SCREEN,URINE NEGATIVE (NEGATIVE); CANNABINOID SCREEN,URINE NEGATIVE (NEGATIVE); COCAINE SCREEN,URINE NEGATIVE (NEGATIVE); METHADONE SCREEN, URINE NEGATIVE (NEGATIVE); OPIATE SCREEN,URINE NEGATIVE (NEGATIVE)
[2022-10-30 02:16] LABS: PHENCYCLIDINE SCREEN,URINE NEGATIVE (NEGATIVE)
[2022-10-30 02:26] LABS: INFLUENZA TYPE A NEGATIVE FOR TYPE A (NEGATIVE); INFLUENZA TYPE B NEGATIVE FOR TYPE B (NEGATIVE)
[2022-10-30] MEDS ORDERED: CALCIUM GLUCONATE 1,000 MG in DEXTROSE 5%-WATER 50 ML IV ONE (03:45)
[2022-10-30] MEDS ORDERED: POTASSIUM CHLORIDE 20 MEQ ER TABLET PO ONE (03:45)
[2022-10-30 06:10] VITALS: BP 157/98
== END 2022-10-30 06:17 | disposition home or self-care (01) ==
LOC: EMS 23:22
DX: B20 Human immunodeficiency virus [HIV] disease (principal); D64.9 Anemia, unspecified; E87.6 Hypokalemia; I10 Essential (primary) hypertension; Z20.822 Contact with and (suspected) exposure to COVID-19
CPT/HCPCS: 99285; 87426; 80053; 85025; 85610; 85730; 87804; 86850; 86900; 86901; 36415; 81003; 74177; 96360; 80307 ×2; J7060; J0610